=== PATIENT | female | born 1935 | race Caucasian/White ===

== ENCOUNTER 2016-11-03 15:20 | Outpatient (CLI) | payer MEDICARE, OTHER ==
[2016-11-03 19:03] LABS: BILIRUBIN,URINE NEGATIVE (NEGATIVE); PH,URINE 6.5 PH (5.0-7.5)
[2016-11-03 19:33] LABS: UR CULTURE IF IND INDICATED; WBC,URINE >25 /HPF (0-5)
== END 2016-11-03 15:21 | disposition home or self-care (01) ==
LOC: LAB.WCP 15:20
PROVIDERS: ATTEND Family Medicine
DX: N39.0 Urinary tract infection, site not specified (principal)
CPT/HCPCS: 81001; 87077; 87086

== ENCOUNTER 2016-11-16 14:00 | Outpatient (CLI) | payer MEDICARE, OTHER | END 2016-11-16 14:01 | disposition home or self-care (01) | DX: N28.9 Disorder of kidney and ureter, unspecified (principal); N39.0 Urinary tract infection, site not specified; R31.29 Other microscopic hematuria ==

== ENCOUNTER 2016-12-06 12:44 | Outpatient (CLI) | payer MEDICARE, OTHER ==
[2016-12-06] MEDS ORDERED: IOPAMIDOL-300 100 ML VIAL IVP ONE (15:33)
--- NOTE | 2016-12-07 11:22 | CT Report ---
CT IVP: 12/06/2016 CLINICAL HISTORY: Hematuria. TECHNIQUE: Prior to and after the administration of 100 mL Isovue-300, axial images were obtained from the domes of the diaphragm through the pubic symphysis. Sagittal and coronal reformations performed. FINDINGS: There are no renal nor ureteral calculi. Bilateral small parapelvic cyst formation. Tiny cortical cysts are incidental measuring less than 9 mm in maximal dimension. The distended bladder is mildly trabeculated. The gallbladder is surgically absent. The common duct is again noted to be prominent measuring up to 2 cm in transverse dimension. Mild intrahepatic duct dilation is unchanged. The adrenal glands, pancreas and spleen are stable. Moderate stool is noted in the colon. Few diverticula are most concentrated in the sigmoid distribution. There is no evidence for active diverticulitis. Advanced vascular calcifications are present in the aorta and visceral arteries. There are a few shotty mesenteric, retroperitoneal, and pelvic lymph nodes without zenia adenopathy. There is no free fluid in the abdomen or pelvis. Multilevel degenerative changes and scoliosis again noted in the lumbar spine. The uterus is surgically absent. IMPRESSION: 1. FEW RENAL CORTICAL AND PARAPELVIC CYSTS. 2. ADVANCED VASCULAR CALCIFICATIONS IN THE AORTA. 3. POSTCHOLECYSTECTOMY. STABLE DUCT DILATION. In accordance with CT protocol optimization, one or more of the following dose reduction techniques were utilized for this exam: automated exposure control, adjustment of mA and/or KV based on patient size, or use of iterative reconstructive technique. JOB #: [id number] EXT JOB #: [id number] [facility]
== END 2016-12-06 12:45 | disposition home or self-care (01) ==
LOC: DI 12:44
PROVIDERS: ATTEND Urology
DX: R31.9 Hematuria, unspecified (principal); I70.0 Atherosclerosis of aorta; Z90.49 Acquired absence of other specified parts of digestive tract
CPT/HCPCS: 74178; Q9967

== ENCOUNTER 2018-04-11 09:35 | Outpatient (CLI) | payer MEDICARE, OTHER | END 2018-04-11 09:36 | disposition home or self-care (01) | LOC: LAB.WCP 09:35 | PROVIDERS: ATTEND Family Medicine | DX: E03.9 Hypothyroidism, unspecified (principal) | CPT/HCPCS: 36415; 84443 ==

== ENCOUNTER 2018-08-22 08:00 | Outpatient (CLI) | payer MEDICARE, OTHER ==
[2018-08-22 19:10] LABS: BASOPHILS # (AUTO) 0.1 10^3/uL (0.0-0.1); BASOPHILS % (AUTO) 0.6 %; EOSINOPHILS # (AUTO) 0.3 10^3/uL (0.0-0.7); EOSINOPHILS % (AUTO) 3.8 %; LYMPHOCYTES # (AUTO) 0.9 10^3/uL (1.5-3.5); LYMPHOCYTES % (AUTO) 11.3 %; MEAN CORPUSCULAR HEMOGLOBIN 31.2 pg (27.0-31.0); MEAN CORPUSCULAR HGB CONC 32.4 g/dL (32.0-36.0); MEAN CORPUSCULAR VOLUME 96.5 fL (81.0-99.0); MEAN PLATELET VOLUME 7.6 fL (7.9-10.8); MONOCYTES # (AUTO) 0.7 10^3/uL (0.0-1.0); MONOCYTES % (AUTO) 8.3 %; NEUTROPHILS # (AUTO) 6.4 10^3/uL (1.5-6.6); PLT - PLATELET COUNT 238 10^3/uL (130-450); RED BLOOD COUNT 4.15 10^6/uL (4.20-5.40); RED CELL DISTRIBUTION WIDTH 14.4 % (12.0-15.0); WHITE BLOOD COUNT 8.4 x10^3/uL (4.8-10.8)
[2018-08-22 19:31] LABS: ALBUMIN 4.1 g/dL (3.2-5.5); BILIRUBIN,TOTAL 0.5 mg/dL (0.2-1.0); CALCIUM 9.1 mg/dL (8.5-10.3); CREATININE 0.8 mg/dL (0.4-1.0); MAGNESIUM 1.9 mg/dL (1.7-2.8); TOTAL PROTEIN 6.2 g/dL (6.7-8.2); URIC ACID 3.4 mg/dL (2.6-7.2)
[2018-08-22 19:33] LABS: THYROID STIMULATING HORMONE 1.18 uIU/mL (0.34-5.60)
== END 2018-08-22 23:59 | disposition home or self-care (01) ==
LOC: LAB.WCP 08:00
PROVIDERS: ATTEND Family Medicine
DX: R25.2 Cramp and spasm (principal); E53.8 Deficiency of other specified B group vitamins; E03.9 Hypothyroidism, unspecified; M10.9 Gout, unspecified
CPT/HCPCS: 36415; 80053; 82607; 83735; 84443; 84550; 85025

== ENCOUNTER 2018-12-13 08:00 | Outpatient (CLI) | payer MEDICARE, OTHER ==
[2018-12-13 18:48] LABS: BASOPHILS % (AUTO) 0.7 %; EOSINOPHILS # (AUTO) 0.2 10^3/uL (0.0-0.7); EOSINOPHILS % (AUTO) 2.5 %; HGB - HEMOGLOBIN 13.1 g/dL (12.0-16.0); LYMPHOCYTES # (AUTO) 0.7 10^3/uL (1.5-3.5); LYMPHOCYTES % (AUTO) 10.2 %; MEAN CORPUSCULAR HEMOGLOBIN 31.7 pg (27.0-31.0); MEAN CORPUSCULAR HGB CONC 33.2 g/dL (32.0-36.0); MEAN CORPUSCULAR VOLUME 95.5 fL (81.0-99.0); MEAN PLATELET VOLUME 7.7 fL (7.9-10.8); MONOCYTES # (AUTO) 0.7 10^3/uL (0.0-1.0); MONOCYTES % (AUTO) 9.6 %; NEUTROPHILS # (AUTO) 5.4 10^3/uL (1.5-6.6); PLT - PLATELET COUNT 230 10^3/uL (130-450); RED BLOOD COUNT 4.13 10^6/uL (4.20-5.40); RED CELL DISTRIBUTION WIDTH 14.1 % (12.0-15.0)
[2018-12-13 19:21] LABS: ALBUMIN 4.1 g/dL (3.2-5.5); ALBUMIN/GLOBULIN RATIO 1.7 (1.0-2.2); BILIRUBIN,TOTAL 0.8 mg/dL (0.2-1.0); CALCIUM 9.2 mg/dL (8.5-10.3); CREATININE 0.9 mg/dL (0.4-1.0); TOTAL PROTEIN 6.5 g/dL (6.7-8.2)
== END 2018-12-13 23:59 | disposition home or self-care (01) ==
LOC: LAB.WCP 08:00
PROVIDERS: ATTEND Family Medicine
DX: K29.70 Gastritis, unspecified, without bleeding (principal); E03.9 Hypothyroidism, unspecified
CPT/HCPCS: 36415; 80053; 83690; 84443; 85025

== ENCOUNTER 2018-12-13 13:43 | Outpatient (CLI) | payer MEDICARE, OTHER ==
--- NOTE | 2018-12-13 16:05 | XRAY Report ---
Reason: NECK PAIN,ACUTE Procedure Date: 12/13/2018 Accession Number: [id number] / [id number] Procedure: WCP - Cervical Spine 2 View CPT Code: FULL RESULT: EXAM: CERVICAL SPINE RADIOGRAPHY EXAM DATE: 12/13/2018 01:58 PM. CLINICAL HISTORY: Chronic neck pain. COMPARISONS: None. TECHNIQUE: 3 views. FINDINGS: Alignment: Normal. No spondylolisthesis or scoliosis. Bones: The cervical vertebral bodies and posterior elements are well visualized from the skull base through C7. C7-T1 disk space is obscured by overlying tissues. No fractures noted. Possible erosion of the tip of the odontoid (above the level of the C1 ring) on the lateral radiograph. Tip of the odontoid is obscured by the occiput on the open-mouth odontoid views, and therefore possible erosion cannot be confirmed. Disks: Mild degenerative disk space narrowing at C4-C5 and C5-C6. Facets: No degenerative disease. Soft Tissues: Normal. No prevertebral soft tissue swelling. The visualized lung apices are clear. IMPRESSION: 1. No acute fracture or malalignment. Note: C7-T1 alignment is obscured on the lateral projection. 2. Possible erosion of the tip of the odontoid on the lateral radiograph versus projectional artifact. Finding cannot be confirmed on the open-mouth odontoid views as the occiput overlies the tip of odontoid. If clinically appropriate, consider repeat imaging versus CT. [facility]
== END 2018-12-13 13:44 | disposition home or self-care (01) ==
LOC: DI.WCP 13:43
PROVIDERS: ATTEND Family Medicine
DX: M50.321 Other cervical disc degeneration at C4-C5 level (principal); K29.70 Gastritis, unspecified, without bleeding; E03.9 Hypothyroidism, unspecified
CPT/HCPCS: 36415; 72040; 80053; 83690; 84443; 85025

== ENCOUNTER 2018-12-20 09:12 | Outpatient (CLI) | payer MEDICARE, OTHER ==
--- NOTE | 2018-12-20 15:53 | CT Report ---
Reason: NECK PAIN,ACUTE,ANESTHESIA OF SKIN Procedure Date: 12/20/2018 Accession Number: [id number] / [id number] Procedure: CT - CERVICAL SPINE WO CPT Code: FULL RESULT: EXAM: CT CERVICAL SPINE WITHOUT CONTRAST DATE: 12/20/2018 09:34 AM. HISTORY: NECK PAIN, ACUTE,ANESTHESIA OF SKIN. COMPARISONS: Cervical spine radiographs 12/13/2018. TECHNIQUE: Thin-section axial images were acquired of the cervical spine without contrast. Post-processing: Coronal and sagittal reformats. Other: None. In accordance with CT protocol optimization, one or more of the following dose reduction techniques were utilized for this exam: automated exposure control, adjustment of mA and/or KV based on patient size, or use of iterative reconstructive technique. FINDINGS: No fracture line is present in the cervical vertebral bodies. No spinous process fracture is present. No perched facet is present. Uncovertebral joint spurring is seen at most levels. Grade 1 retrolisthesis of C4 relative to C5 and C3 relative to C4 is noted. Loss of disk space height is seen from C4 through C7. Vacuum disk phenomena is seen at C4-C5 and C5-C6. Grade 1 anterolisthesis of C7 relative to T1 is noted. There are small areas of lucency involving the cervical vertebral bodies most evident at C7. Posterior protrusion of disk and osteophyte is seen at C4-C5, C5-C6, and at C6-C7. C2-C3: Right foraminal narrowing. C3-C4: Mild to moderate bilateral foraminal stenosis. C4-C5: Moderate to severe bilateral foraminal stenosis bilaterally. C5-C6: Moderate to severe bilateral foraminal stenosis. C6-C7: Mild to moderate right and moderate left foraminal stenosis. C7-T1: Mild left foraminal stenosis. Central canal is borderline at C4-C5 and C5-C6 without obvious central canal stenosis. Cerumen is present in the external auditory canal on the right. Stellate densities are seen in the upper lobe bilaterally. This might well reflect pleural/parenchymal scarring. This is greater on the right relative to the left. No mass is present in the nasopharynx. No bulky lymphadenopathy is identified in the neck by cervical spine CT. Atherosclerotic plaque is seen involving the distal CCA extending into the proximal cervical ICA and the proximal ECA bilaterally. The thyroid gland is not enlarged. No subglottic stenosis is present. IMPRESSION: 1. Degenerative disk disease and osteophyte formation are present at multiple levels in the cervical spine. This is greatest from C4 through C7. 2. Multilevel foraminal stenosis is present and is seen bilaterally from C3 through C7. 3. Multilevel spondylolisthesis. 4. No cervical spine fracture. 5. Areas of trabecular lucency are seen, most evident in the C7 vertebral body. This could reflect aggressive osteoporosis. Other etiologies such as myeloma or metastatic disease are not entirely excluded. [facility]IA
== END 2018-12-20 09:13 | disposition home or self-care (01) ==
LOC: DI 09:12
PROVIDERS: ATTEND Family Medicine
DX: M50.321 Other cervical disc degeneration at C4-C5 level (principal); M48.02 Spinal stenosis, cervical region; M43.12 Spondylolisthesis, cervical region; M25.78 Osteophyte, vertebrae
CPT/HCPCS: 72125

== ENCOUNTER 2019-01-10 08:00 | Outpatient (CLI) | payer MEDICARE, OTHER ==
[2019-01-10 18:45] LABS: BASOPHILS % (AUTO) 0.7 %; EOSINOPHILS # (AUTO) 0.2 10^3/uL (0.0-0.7); EOSINOPHILS % (AUTO) 3.5 %; HGB - HEMOGLOBIN 12.9 g/dL (12.0-16.0); LYMPHOCYTES # (AUTO) 0.9 10^3/uL (1.5-3.5); LYMPHOCYTES % (AUTO) 13.6 %; MEAN CORPUSCULAR HEMOGLOBIN 31.5 pg (27.0-31.0); MEAN CORPUSCULAR HGB CONC 33.2 g/dL (32.0-36.0); MEAN PLATELET VOLUME 7.8 fL (7.9-10.8); MONOCYTES # (AUTO) 0.7 10^3/uL (0.0-1.0); MONOCYTES % (AUTO) 10.1 %; NEUTROPHILS # (AUTO) 4.7 10^3/uL (1.5-6.6); NEUTROPHILS % (AUTO) 72.1 %; PLT - PLATELET COUNT 211 10^3/uL (130-450); RED BLOOD COUNT 4.08 10^6/uL (4.20-5.40); WHITE BLOOD COUNT 6.5 x10^3/uL (4.8-10.8)
[2019-01-10 19:02] LABS: ALBUMIN 4.2 g/dL (3.2-5.5); ALBUMIN/GLOBULIN RATIO 1.8 (1.0-2.2); BILIRUBIN,TOTAL 0.7 mg/dL (0.2-1.0); CALCIUM 9.4 mg/dL (8.5-10.3); CREATININE 0.7 mg/dL (0.4-1.0); TOTAL PROTEIN 6.5 g/dL (6.7-8.2)
== END 2019-01-10 23:59 | disposition home or self-care (01) ==
LOC: LAB.WCP 08:00
PROVIDERS: ATTEND Family Medicine
DX: M89.9 Disorder of bone, unspecified (principal)
CPT/HCPCS: 36415; 80053; 81599; 84155; 84165; 85025; 86334

== ENCOUNTER 2019-01-15 08:38 | Outpatient (CLI) | payer MEDICARE, OTHER ==
[2019-01-15] MEDS ORDERED: IOVERSOL 320 100 ML VIAL IVP ONE ×2 (12:18→14:52)
[2019-01-15] MEDS ORDERED: IOVERSOL 320 50 ML VIAL ONE (12:18)
--- NOTE | 2019-01-15 14:20 | DEXA Report ---
Reason: BONE LESION,BONE DISORDER Procedure Date: 01/15/2019 Accession Number: [id number] / [id number] Procedure: DEX - Dexa Spine and/or Hip CPT Code: FULL RESULT: EXAM: Dexa Spine and/or Hip DATE: 01/15/2019 9:21 AM CLINICAL HISTORY: BONE Lesion, bone DISORDER TECHNIQUE: Dual energy x-ray absorptiometry (DXA) was performed on a [employer] System. Regions measured are the AP Spine, femoral neck, and if needed forearm. COMPARISON: None. In accordance with the International Society for Clinical Densitometry (ISCD) guidelines, data from previous exams may be reanalyzed using current recommendations and techniques. This is done to allow a more accurate basis for comparison with the current study. FINDINGS: The data for the lumbar spine is as follows: BMD (g/cm/cm) T-SCORE Z-SCORE REGION L1 0.845 -2.4 -0.2 L2 0.952 -2.1 0.1 L3 1.151 -0.4 1.7 L4 1.120 -0.7 1.5 TOTAL 1.021 -1.3 0.8 NOTE: All evaluable vertebrae are used for classification The data for the hip is as follows: BMD (g/cm/cm) T-SCORE Z-SCORE REGION Neck 0.618 -3.0 -0.5 TOTAL 0.544 -3.7 -1.3 NOTE: The femoral neck or total proximal femur, whichever is lowest, is used for classification. IMPRESSION: THE WHO CLASSIFICATION BASED ON THE INTERNATIONAL REFERENCE STANDARD IS OSTEOPOROSIS. THE FRACTURE RISK IS HIGH. RECOMMENDATION: Patients with diagnosis of osteoporosis or osteopenia should have regular bone mineral density assessment. For those eligible for Medicare, routine testing is allowed once every 2 years. Testing frequency can be increased for patients who have rapidly progressing disease or for those who are receiving medical therapy to restore bone mass. COMMENT: World Health Organization (WHO) definitions for osteoporosis and osteopenia: NORMAL BMD: T-score at -1.0 or higher, fracture risk is low OSTEOPENIA BMD: T-score between -1.0 and -2.5, fracture risk is increased. OSTEOPOROSIS BMD: T-score at -2.5 or lower, fracture risk is high. National Osteoporosis Foundation recommends: 1. Obtain adequate dietary calcium (at least 1200 mg per day) and vitamin D (400-800 international units per day). 2. Participate, as appropriate, in regular weightbearing and muscle-strengthening exercise. 3. Avoid tobacco use and reduce alcohol and caffeine intake. 4. For more detailed information see the website at www.NOF.org.
[2019-01-15] MEDS ORDERED: IOVERSOL 320 50 ML VIAL PO ONE (14:52)
--- NOTE | 2019-01-15 16:02 | Nuclear Medicine Report ---
Reason: BONE LESION,BONE DISORDER Procedure Date: 01/15/2019 Accession Number: [id number] / [id number] Procedure: NM - Bone Whole Body CPT Code: FULL RESULT: EXAM: BONE SCAN EXAM DATE: 01/15/2019 12:56 PM. CLINICAL HISTORY: BONE LESION,BONE DISORDER. C7 vertebral abnormality on prior CT. COMPARISON: CERVICAL SPINE W/O 12/20/2018 9:26 AM HEAD W/O 05/20/2016 3:49 PM. TECHNIQUE: Following the intravenous administration of 32.3 mCi of technetium 99m MDP and an appropriate delay, a whole-body scan was performed in anterior and posterior projections. Site-specific spot views of the region of interest were obtained in various projections. FINDINGS: Exam Quality: Normal overall osseous radiotracer uptake. Physiological tracer uptake in bilateral collecting systems. Skull: There is a tiny focus of asymmetric uptake in the superior left skull, only visualized on the whole-body anterior view. Thorax: There are foci of increased uptake in consecutive anterior bilateral ribs, consistent with prior trauma/fracture. Pelvis: No focal lesions. Spine: No focal uptake in the cervical or thoracic or lumbar spine. There is an S-shaped thoracolumbar scoliosis. IMPRESSION: 1. No suspicious abnormal uptake in the spine. 2. Foci of increased uptake in bilateral anterior ribs, and a pattern consistent with posttraumatic etiology. 3. Tiny focus of asymmetric uptake in the upper left skull, uncertain etiology or significance. [facility]IA
--- NOTE | 2019-01-15 16:04 | CT Report ---
Reason: BONE LESION,BONE DISORDER Procedure Date: 01/15/2019 Accession Number: [id number] / [id number] Procedure: CT - Abdomen/Pelvis W CPT Code: FULL RESULT: EXAM: CT ABDOMEN AND PELVIS EXAM DATE: 01/15/2019 02:03 PM. CLINICAL HISTORY: Bone lesion, bone disorder. COMPARISONS: IVP 12/06/2016 3:10 PM. BONE SCAN 01/15/2019 11:49 AM. CHEST 2 VIEW PA/LAT 10/09/2018 1:42 PM. TECHNIQUE: Routine helical CT imaging was performed through the abdomen and pelvis. IV contrast: Isovue-300 100 mL. Enteric contrast: Yes. Reconstructions: Coronal and sagittal. In accordance with CT protocol optimization, one or more of the following dose reduction techniques were utilized for this exam: automated exposure control, adjustment of mA and/or KV based on patient size, or use of iterative reconstructive technique. FINDINGS: Lung Bases: Minimal scarring is suspected at the right base. Liver: Normal. No masses. Gallbladder/Bile Ducts: Status post cholecystectomy with expected prominence of the extrahepatic biliary system. Spleen: Normal. Pancreas: Normal. Adrenal Glands: Normal. Kidneys: Left renal hypodensity which is too small to characterize. No masses or hydronephrosis. Peritoneal Cavity/Bowel: There is no lymphadenopathy by size criteria. There is no bowel obstruction. There is no free fluid or free air. Pelvic Organs: Normal. The bladder and visualized pelvic organs are within normal limits. Vasculature: No aneurysms or other significant abnormality. Bones: The bones are qualitatively osteopenic; this limits evaluation for underlying fractures or masses. Bones appear osteopenic and there is a dextroconvex lumbar scoliosis centered about L3. Lucency of the sacral bone stock bilaterally is concerning for potential insufficiency fracture/impending insufficiency fracture. No aggressive osseous lesion is detected. Other: None. IMPRESSION: Marked osteopenia, especially in the sacral region. Potential risk for insufficiency fracture. [facility]IA
== END 2019-01-15 08:39 | disposition home or self-care (01) ==
LOC: DI 08:38
PROVIDERS: ATTEND Family Medicine
DX: M81.0 Age-related osteoporosis without current pathological fracture (principal); R10.84 Generalized abdominal pain
CPT/HCPCS: 74177; 77080; 78306; Q9967

== ENCOUNTER 2019-10-14 08:00 | Outpatient (CLI) | payer MEDICARE, OTHER | END 2019-10-14 23:59 | disposition home or self-care (01) | LOC: LAB.WCP 08:00 | PROVIDERS: ATTEND Family Medicine | DX: E53.8 Deficiency of other specified B group vitamins (principal); N39.0 Urinary tract infection, site not specified | CPT/HCPCS: 36415; 82607; 87086 ==

== ENCOUNTER 2019-10-14 08:45 | Outpatient (CLI) | payer MEDICARE, OTHER ==
--- NOTE | 2019-10-14 15:49 | XRAY Report ---
Reason: BRONCHIECTASIS Procedure Date: 10/14/2019 Accession Number: [id number] / [id number] Procedure: WCP - Chest 2 View X-Ray CPT Code: 29367 Final Report FULL RESULT: EXAM: CHEST RADIOGRAPHY EXAM DATE: 10/14/2019 09:07 AM. CLINICAL HISTORY: BRONCHIECTASIS. Dyspnea on exertion. COMPARISON: CHEST 2 VIEW PA/LAT 10/09/2018 1:42 PM. TECHNIQUE: 2 views. FINDINGS: Lungs/Pleura: Hyperexpanded. Scarring or atelectasis in the lung bases. No definite acute infiltrate, consolidation, effusion, or pneumothorax. Mediastinum: Heart and mediastinal contours are unremarkable. Upper lobe vessels not distended. Other: Degenerative changes. IMPRESSION: No acute disease. RADIA
== END 2019-10-14 23:59 | disposition home or self-care (01) ==
LOC: DI.WCP 08:45
PROVIDERS: ATTEND Family Medicine
DX: J47.9 Bronchiectasis, uncomplicated (principal); E53.8 Deficiency of other specified B group vitamins; N39.0 Urinary tract infection, site not specified
CPT/HCPCS: 36415; 71046; 82607; 87086

== ENCOUNTER 2020-03-25 08:00 | Outpatient (CLI) | payer MEDICARE, OTHER ==
[2020-03-25 19:18] LABS: BASOPHILS % (AUTO) 0.5 %; EOSINOPHILS # (AUTO) 0.2 10^3/uL (0.0-0.7); EOSINOPHILS % (AUTO) 3.6 %; HGB - HEMOGLOBIN 12.1 g/dL (12.0-16.0); LYMPHOCYTES # (AUTO) 0.9 10^3/uL (1.5-3.5); LYMPHOCYTES % (AUTO) 13.3 %; MEAN CORPUSCULAR HEMOGLOBIN 32.1 pg (27.0-31.0); MEAN CORPUSCULAR HGB CONC 32.4 g/dL (32.0-36.0); MEAN CORPUSCULAR VOLUME 98.9 fL (81.0-99.0); MEAN PLATELET VOLUME 9.6 fL (7.9-10.8); MONOCYTES # (AUTO) 0.6 10^3/uL (0.0-1.0); MONOCYTES % (AUTO) 9.9 %; NEUTROPHILS # (AUTO) 4.7 10^3/uL (1.5-6.6); NEUTROPHILS % (AUTO) 72.2 %; PLT - PLATELET COUNT 204 10^3/uL (130-450); RED BLOOD COUNT 3.77 10^6/uL (4.20-5.40); RED CELL DISTRIBUTION WIDTH 13.7 % (12.0-15.0); WHITE BLOOD COUNT 6.5 x10^3/uL (4.8-10.8)
[2020-03-25 19:43] LABS: CALCIUM 9.1 mg/dL (8.5-10.3); CREATININE 0.9 mg/dL (0.4-1.0)
== END 2020-03-25 23:59 | disposition home or self-care (01) ==
LOC: LAB.WCP 08:00
PROVIDERS: ATTEND Family Medicine
DX: R06.09 Other forms of dyspnea (principal)
CPT/HCPCS: 36415; 80048; 83880; 85025

== ENCOUNTER 2020-05-28 07:00 | Outpatient (CLI) | payer MEDICARE, OTHER | END 2020-05-28 23:59 | disposition home or self-care (01) | LOC: LAB.R 07:00 | PROVIDERS: ATTEND Family Medicine | DX: L08.89 Other specified local infections of the skin and subcutaneous tissue (principal) | CPT/HCPCS: 87070; 87181; 87205 ==

== ENCOUNTER 2020-10-19 10:14 | Outpatient (CLI) | payer MEDICARE, OTHER ==
[2020-10-19 12:47] LABS: BASOPHILS # (AUTO) 0.1 10^3/uL (0.0-0.1); BASOPHILS % (AUTO) 0.5 %; EOSINOPHILS # (AUTO) 0.2 10^3/uL (0.0-0.7); EOSINOPHILS % (AUTO) 2.3 %; LYMPHOCYTES # (AUTO) 0.8 10^3/uL (1.5-3.5); LYMPHOCYTES % (AUTO) 8.3 %; MEAN CORPUSCULAR HEMOGLOBIN 31.6 pg (27.0-31.0); MEAN CORPUSCULAR VOLUME 98.7 fL (81.0-99.0); MEAN PLATELET VOLUME 10.1 fL (7.9-10.8); MONOCYTES # (AUTO) 0.9 10^3/uL (0.0-1.0); MONOCYTES % (AUTO) 9.3 %; NEUTROPHILS % (AUTO) 79.3 %; PLT - PLATELET COUNT 213 10^3/uL (130-450); RED CELL DISTRIBUTION WIDTH 13.7 % (12.0-15.0); WHITE BLOOD COUNT 10.1 x10^3/uL (4.8-10.8)
[2020-10-19 13:12] LABS: ALBUMIN 4.4 g/dL (3.2-5.5); ALBUMIN/GLOBULIN RATIO 2.1 (1.0-2.2); BILIRUBIN,TOTAL 0.7 mg/dL (0.2-1.0); CALCIUM 9.5 mg/dL (8.5-10.3); CREATININE 0.8 mg/dL (0.4-1.0); TOTAL PROTEIN 6.5 g/dL (6.7-8.2)
== END 2020-10-19 23:59 | disposition home or self-care (01) ==
LOC: LAB.WCP 10:14
PROVIDERS: ATTEND Family Medicine
DX: N28.9 Disorder of kidney and ureter, unspecified (principal); E03.9 Hypothyroidism, unspecified; E53.8 Deficiency of other specified B group vitamins
CPT/HCPCS: 36415; 80053; 82607; 84443; 85025